=== PATIENT | male | born 1950 | race Caucasian/White ===

== ENCOUNTER 2020-01-07 04:38 | Inpatient (IN) ==
[2020-01-07] MEDS ORDERED: NS 1,000 ML IV ONE (06:34)
[2020-01-07] MEDS ORDERED: DILAUDID IV ONE (06:34)
[2020-01-07] MEDS ORDERED: SODIUM CHLORIDE 0.9% INJ ONE (06:35)
[2020-01-07] MEDS ORDERED: PHENERGAN IV ONE (06:35)
--- NOTE | 2020-01-07 06:41 | PROVIDER DOCUMENTATION ---
HPI-Abdominal Pain/GI Problem - General Chief Complaint: Abdominal Pain Stated Complaint: STOMACH PAIN Time Seen by Provider: 01/07/20 06:27 Source: patient Allergies/Adverse Reactions: Patient Allergies Allergy/AdvReac Type Severity Reaction Status Date / Time codeine AdvReac NAUSEA Verified 01/07/20 05:26 Home Medications: Home Medication List Medication Instructions Recorded Confirmed Last Taken Type Metoprolol [Lopressor] 50 mg PO DAILY 01/07/20 01/07/20 Unknown History - History of Present Illness-ABD Nature of Presenting Problems: Patient states he began having abdominal pain around his belly button and epigastric area around 7 pm last night. he had mild nausia but no vomiting. He felt bloated like he had to move his bowels. He had a small bowel movement. no melena or hematochezia. no improvement in abdominal discomfort. Abdominal Pain Onset Location: reports: epigastric, periumbilical Pain Radiation: reports: epigastric Quality of Pain: reports: pressure, other (bloating) Severity in ED: reports: severe Onset/Duration: reports: last night (7 pm) Timing: reports: still present Activities at Onset: reports: none Modifying Factors: improves with: nothing Associated Symptoms: reports: nausea Last BM: other (1 am) Dark Stools Present?: reports: other (brown stool). denies: maroon, black, tarry, bright red blood Rectal Bleeding: reports: none Rectal Pain: reports: none Emesis Description: reports: none Bruising or Bleeding Gums?: No Similar Symptoms Previously?: No Recently seen or treated by another doctor?: No Review of Systems - Adult - REVIEW OF SYSTEMS - ADULT Constitutional: reports: no symptoms reported Eyes: reports: no symptoms reported Ears, Nose, Mouth & Throat: reports: no symptoms reported Cardiovascular: reports: no symptoms reported Respiratory: reports: no symptoms reported Gastrointestinal: reports: see HPI Genitourinary: reports: no symptoms reported Musculoskeletal: reports: no symptoms reported Integumentary: reports: no symptoms reported Neurological: reports: no symptoms reported Psychiatric: reports: no symptoms reported Endocrine: reports: no symptoms reported Hematologic/Lymphatic: reports: no symptoms reported Allergic/Immunologic: reports: no symptoms reported Past History - Adult - PAST MEDICAL HISTORY-ADULT Review of Records: reports: Old Records Reviewed, Nursing Assessment Review Major Childhood Illnesses: reports: denies history Cardiovascular: reports: HTN Respiratory: reports: denies history Gastrointestinal: reports: denies history Genitourinary: reports: denies history Musculoskeletal: reports: denies history Neurological: reports: denies history Psychiatric: reports: denies history Endocrine/Immune: reports: denies history Physical Exam-General - PHYSICAL EXAM-ADULT Initial Vital Signs Reviewed: Yes - CONSTITUTIONAL General Appearance: alert, mild distress, obese - EYES Eyes: PERRL/EOMI, pink conjunctivae - HEAD, EARS, NOSE, MOUTH & THROAT HENMT: normocephalic/atraumatic, moist mucous membranes, normal ENT inspection, TMs normal, pharynx normal - NECK Neck: non-tender, full range of motion, supple - RESPIRATORY Respiratory: chest non-tender, lungs clear, normal breath sounds, no pleuratic chest pain - CARDIOVASCULAR Cardiovascular: normal peripheral pulses, regular rate, rhythm, no edema, no gallop, no JVD, no murmur - GASTROINTESTINAL (ABDOMEN) Abdominal Exam: soft, tenderness (periumbilical). negative: mass, McBurney's point tenderness, Cruz's sign - LYMPHATIC Lymphatic: no adenopathy - MUSCULOSKELETAL Back Exam: normal inspection, no CVA tenderness, no vertebral tenderness Extremity: normal range of motion, non-tender, normal gait - SKIN Integumentary: normal color, normal turgor, warm/dry - NEUROLOGIC Neurologic: grossly normal - PSYCHIATRIC Psych/Mental Status: normal mood/affect, normal thought content Progress - PLAN OF CARE/RESULTS Progress/Plan/Lab Results: Vital Signs - 8 hr 01/07/20 04:57 Pulse Rate 96 H Respiratory Rate 19 Blood Pressure 148/88 O2 Sat by Pulse Oximetry 96 Orders Category Date Time Status FLAT/UPRIGHT ABD/1 VIEW CHEST [RAD] Stat Exams 01/07/20 06:33 Ordered AMYLASE [CHEM] Stat Lab 01/07/20 06:33 Uncollected CBC WITH ELECTRONIC DIFF [HEME] Stat Lab 01/07/20 06:33 Uncollected COMPREHENSIVE METABOLIC PANEL [CHEM] Stat Lab 01/07/20 06:33 Ordered LIPASE [CHEM] Stat Lab 01/07/20 06:33 Uncollected Hydromorphone [Dilaudid] Med 01/07/20 06:34 Once 1 mg IV NOW ONE Ns 1000 ml IV Bolus X1 Med 01/07/20 06:34 Ordered 0.9% Sodium Chloride Inj [Ns] 1,000 ml IV 999 mls/hr Promethazine [Phenergan] Med 01/07/20 06:35 Once 12.5 mg IV NOW ONE Sodium Chloride 0.9% Med 01/07/20 06:35 Once 10 ml INJ NOW ONE Result Diagrams: 01/07/20 06:06 01/07/20 06:06 - REASSESSMENT Reassessment #1 Time Reassessed: 08:27 Status: improving (Seen and examined by me. Case discussed wt Dr. Jolley at shift change, had been very tender initially, better after dilaudid. Will check CT a/p.) - XRAY 1 XRAY Study: Abdomen Impression: Abnormal, See EMR Report ( EXAM: FLAT/UPRIGHT ABD/1 VIEW CHEST INDICATION: periumbilical pain TECHNIQUE: 4 views COMPARISON: 11/14/2019 FINDINGS: There are a few loops of moderately distended small bowel with air- fluid levels in the mid and left side of the abdomen. Consider ileus versus partial obstruction. There is no evidence of large volume free abdominal gas. There is no evidence of organomegaly. The lungs are grossly clear. There is no discrete pleural fluid collection or pneumothorax. The cardiomediastinal silhouette and central vasculature are grossly unremarkable. IMPRESSION: A few nonspecific moderately distended loops of small bowel as described. Electronically signed by Foster Alfonso 01/07/2020 7:55 AM 01/07/20 0755 Interpreting Physician: Foster Alfonso MD Dictated Date/Time: 01/07/20 0753 cc: Guzman Jolley DO; Julio Calderón MD) - ULTRASOUND (By Radiology) 1 US Study: Abdomen Impression: Abnormal, See EMR Report ( EXAM: CT ABD/PELVIS W/IV CONT ONLY INDICATION: abd pain TECHNIQUE: This exam was performed using automated exposure control, adjustment of mA or kV according to patient size, and/or use of iterative reconstruction technique. COMPARISON: None. FINDINGS: The liver, gallbladder, spleen, pancreas, and adrenal glands are grossly unremarkable. There is a small left renal cyst. The kidneys are unremarkable, otherwise. The urinary bladder is unremarkable. The appendix is normal. There are several moderately distended loops of small bowel mainly on the left side of the abdomen containing gas and fluid. The distal small bowel is decompressed. This is consistent with small bowel obstruction. The transition point appears to be in the left lower quadrant. There is mild mesenteric edema surrounding the loops of distended small bowel. The colon is nondistended. The stomach appears normal. No free abdominal gas is appreciated. There is no evidence of acute osseous abnormality. IMPRESSION: Several moderately distended loops of small bowel with surrounding mild mesenteric edema consistent with small bowel obstruction. The transition point is likely in the left lower quadrant. Electronically signed by Foster Alfonso 01/07/2020 8:37 AM 01/07/20 0837 Interpreting Physician: Foster Alfonso MD Dictated Date/Time: 01/07/20 0831 cc: Imtiaz Cespedes MD; Julio Calderón MD) - CONSULTS/PCP/HOSPITALIST Notification #1 *Consult/PCP/Hospitalist*: Hospitalist ROCAEL paged at 0910 Time Discussed: 09:21 (ROCAEL Newman) Reason/Comments: Dr. Jones will admit, please consult surgery Consult Disposition: Will see in ED, Admit #2 Consult: Xi paged at 09 Time Discussed: 09:22 Consult Disposition: other (will see) - CHANGE OF SHIFT REPORT (ED Provider) 1 Report Given and Care Transferred to:: Dr Cespedes Time of Transfer: 07:09 Items Pending: Labs, XRAY Results Departure - Departure Date of Disposition Decision: 01/07/20 Time of Disposition Decision: 09:09 DIAGNOSIS: Small bowel obstruction Disposition: ADMITTED INPATIENT 09 Certified Medical Emergency: Emergent Condition: Stable Referrals and Follow-Ups: Julio Calderón MD [Primary Care Provider] - - Critical Care Note This patient required my direct & personal management of CC.: No Attestation - Physician/ PADMINI Attestation Patient care was provided by Advanced Practice Provider:: No The physician spent face to face time with patient:: Yes Advanced Practice Provider documentation review:: Supervising physician onsite and consulted in the evaluation and care of this patient. The physician did have a face to face encounter with the patient.
[2020-01-07 07:06] LABS: BASO# 0.02 X1000 (0.0-0.2); BASO% 0.2 % (0.0-0.8); EOS# 0.06 X1000 (0.0-0.7); EOS% 0.7 % (0.0-10.0); HEMATOCRIT 45.1 % (42.0-52.0); HEMOGLOBIN 14.8 g/dL (14.0-18.0); LYMPH# 1.62 X1000 (1.2-3.4); LYMPH% 18.3 % (20.5-51.1); MCH 30.1 PG (27-31); MCHC 32.8 g/dL (33-37); MCV 91.7 FL (81-99); MONO# 0.47 X1000 (0.11-0.59); MONO% 5.3 % (1.7-9.3); MPV 11.8 FL (7.4-10.4); NEUT# 6.66 X1000 (1.4-6.5); NEUT% 75.5 % (42.2-75.2); PLT 183 X1000 (130-400); RBC 4.92 XMIL (4.7-6.1); RDW 13.4 % (11.5-14.5); WBC 8.83 X1000 (4.8-10.8)
[2020-01-07 07:07] LABS: AGAP 11; ALB/GLOB RATIO 1.6; ALBUMIN 4.3 g/dL (3.5-5.0); ALKALINE PHOSPHATASE 68 U/L (32-122); BUN 18 mg/dL (8-22); CALCIUM 9.4 mg/dL (8.8-10.2); CHLORIDE 102 mmol/L (98-107); COSMO 284; ESTIMATED GFR > 60; GLUCOSE 146 mg/dL (70-104); GOT 21 U/L (10-34); GPT 19 U/L (10-44); SODIUM 140 mmol/L (136-145); TCO2 27 mmol/L (25-35); TOTAL BILIRUBIN 0.44 mg/dL (0.20-1.00)
[2020-01-07 07:15] LABS: AMYLASE 57 U/L (20-200); LIPASE 41 U/L (13-60)
--- NOTE | 2020-01-07 07:57 | Diag Imaging Result Doc PS360 ---
EXAM: FLAT/UPRIGHT ABD/1 VIEW CHEST INDICATION: periumbilical pain TECHNIQUE: 4 views COMPARISON: 11/14/2019 FINDINGS: There are a few loops of moderately distended small bowel with air-fluid levels in the mid and left side of the abdomen. Consider ileus versus partial obstruction. There is no evidence of large volume free abdominal gas. There is no evidence of organomegaly. The lungs are grossly clear. There is no discrete pleural fluid collection or pneumothorax. The cardiomediastinal silhouette and central vasculature are grossly unremarkable. IMPRESSION: A few nonspecific moderately distended loops of small bowel as described. Electronically signed by Foster Alfonso 01/07/2020 7:55 AM
--- NOTE | 2020-01-07 08:39 | Diag Imaging Result Doc PS360 ---
EXAM: CT ABD/PELVIS W/IV CONT ONLY INDICATION: abd pain TECHNIQUE: This exam was performed using automated exposure control, adjustment of mA or kV according to patient size, and/or use of iterative reconstruction technique. COMPARISON: None. FINDINGS: The liver, gallbladder, spleen, pancreas, and adrenal glands are grossly unremarkable. There is a small left renal cyst. The kidneys are unremarkable, otherwise. The urinary bladder is unremarkable. The appendix is normal. There are several moderately distended loops of small bowel mainly on the left side of the abdomen containing gas and fluid. The distal small bowel is decompressed. This is consistent with small bowel obstruction. The transition point appears to be in the left lower quadrant. There is mild mesenteric edema surrounding the loops of distended small bowel. The colon is nondistended. The stomach appears normal. No free abdominal gas is appreciated. There is no evidence of acute osseous abnormality. IMPRESSION: Several moderately distended loops of small bowel with surrounding mild mesenteric edema consistent with small bowel obstruction. The transition point is likely in the left lower quadrant. Electronically signed by Foster Alfonso 01/07/2020 8:37 AM
[2020-01-07 08:40] LABS: URINE SOURCE CLEAN CATCH
[2020-01-07 08:48] LABS: BILIRUBIN URINE NEGATIVE (NEGATIVE); BLOOD URINE NEGATIVE (NEGATIVE); COLOR YELLOW; GLUCOSE URINE NEGATIVE (NEGATIVE); KETONE URINE NEGATIVE (NEGATIVE); LEUKOCYTES URINE NEGATIVE (NEGATIVE); NITRITE URINE NEGATIVE (NEGATIVE); PH URINE 6.5; PROTEIN URINE TRACE mg/dL (NEGATIVE); TURBIDITY URINE CLEAR (CLEAR); UROBILINOGEN URINE NORMAL (NORMAL)
[2020-01-07 08:49] LABS: UR EPITHELIAL CELLS <10 /HPF (<10); URINE BACTERIA NEGATIVE /HPF; URINE RBC <10 /HPF (<10); URINE WBC <10 /HPF (<10)
[2020-01-07] MEDS: NS 1,000 ML IV SCH ×2 (09:58→22:30)
--- NOTE | 2020-01-07 11:28 | HISTORY AND PHYSICAL ---
PRIMARY CARE PHYSICIAN: Dr. Calderón. CHIEF COMPLAINT: Epigastric and umbilical abdominal pain that began around 7 p.m. last night and progressively worsened with nausea. HISTORY OF PRESENTING ILLNESS: This is a 69-year-old male who presents to [facility] with complaints of epigastric and umbilical abdominal pain that began around 7 p.m. last night. Also states he has had some nausea but no vomiting. States he had 2 bowel movements yesterday and 1 around 1 a.m. today that were normal for him. Workup showed an abdomen x-ray with a few nonspecific moderately distended loops of small bowel, so we did a CT of the abdomen and pelvis that showed several moderately distended loops of small bowel with surrounding mild mesenteric edema consistent with small bowel obstruction. The transition point is likely the left lower quadrant. So, he will be admitted for further evaluation and treatment. PAST MEDICAL HISTORY: Hypertension. PAST SURGICAL HISTORY: None. FAMILY HISTORY: Reviewed and noncontributory. SOCIAL HISTORY: Currently lives with family. Denies any tobacco, alcohol or illicit drug use. ALLERGIES: To codeine. HOME MEDICATIONS: He takes Hyzaar 100/12.5 one p.o. daily and metoprolol 100 mg daily p.r.n. both of which will be held at this time. LABORATORY DATA: Showed a white blood cell count of 8.83, hemoglobin 14.8, hematocrit 45.1, platelets 183,000. Sodium 140, potassium 5, chloride 102, CO2 27, BUN of 18, creatinine 1, glucose 146. Amylase of 57, lipase 41. Urinalysis is negative. Abdomen x-ray showed a few nonspecific moderately distended loops of small bowel. CT of the abdomen and pelvis showed several moderately distended loops of small bowel with surrounding mild mesenteric edema consistent with a small bowel obstruction. Transition point is likely in the left lower quadrant. REVIEW OF SYSTEMS: He denied any fever, chills, blurred vision, dizziness, chest pain, coughing, shortness of breath. He had umbilical and epigastric abdominal pain with nausea. Denied any vomiting. Denied constipation, diarrhea, stating his last bowel movement was around 1 a.m. and was normal and denied any burning or hurting with urination. PHYSICAL EXAMINATION: VITAL SIGNS: On arrival he had a pulse of 96, respirations 19, blood pressure 144/88, saturating 96% on room air. GENERAL: This is a 69-year-old male who is lying in the bed and answers questions appropriately. HEENT: Normocephalic, atraumatic. Normal ENT inspection. Oropharynx and nares are clear. EYES: Pupils are equal, round, reactive to light and accommodation. Extraocular movements are intact. NECK: Normal inspection, normal range of motion. LUNGS: Clear to auscultation bilaterally with equal lung expansion and chest wall movement. HEART: Regular rate and rhythm. No murmurs, rubs, or gallops. ABDOMEN: Was mildly distended with tenderness to the periumbilical area. Bowel sounds are hypoactive x4 quadrants. MUSCULOSKELETAL: He has 5/5 strength x4 extremities. NEUROLOGICAL: The cranial nerves 2-12 appear grossly intact. ASSESSMENT: 1. Epigastric and umbilical abdominal pain. 2. Small bowel obstruction. 3. Hypertension. PLAN: He will be admitted to the medical unit, placed on telemetry, held n.p.o. We will apply SCDs for DVT prophylaxis. We will consult surgery to follow along. Give Dilaudid 1 mg IV q.3 hours p.r.n., normal saline at 125 mL an hour, Zofran 4 mg IV q.4 hours p.r.n. Further orders after seen by attending and by it systems analyst consultant. Dictated by ROCAEL Espana for Jerardo Espinoza MD Addendum: Patient seen and examined by myself. Agree with ROCAEL note. It reflects my assessment and plan. Patient is being admitted to hospital for SBO so will consult surgery and will go from there. Will provide IV lfuids and pain medications. cc: ROCAEL Espana MD Michael C. Donham, MD MTDD
[2020-01-07] MEDS: DILAUDID IV PRN ×2 (13:34→22:30)
[2020-01-07] MEDS: ZOFRAN IV PRN ×2 (18:06→22:30)
--- NOTE | 2020-01-07 18:43 | GENERAL SURGERY CONSULTATION ---
DATE: 01/07/2020 REASON FOR CONSULTATION: Small-bowel obstruction. HISTORY OF PRESENT ILLNESS: This is a 69-year-old male who was in his usual state of health, who began experiencing severe epigastric pain with some mild nausea last night after supper. He ate [place]. His ate them as well but did not get sick. He went to bed and woke up at 11 with persistent and progressive epigastric pain. He did have a bowel movement this morning at 1 a.m. that was normal. He came to emergency room. His pain has lessened significantly. Of note he did get better when he walked around and with pain medicine here in the hospital, it seemed to be worse when he was lying down still. No prior episodes similar to this. No fever or chills. No diarrhea or constipation. PAST MEDICAL HISTORY: Hypertension. HOME MEDICATIONS: Losartan/hydrochlorothiazide and metoprolol. ALLERGIES: Codeine. PAST SURGICAL HISTORY: None. FAMILY HISTORY: His brother had colon cancer. SOCIAL HISTORY: He denies tobacco, alcohol or illicit drug use. REVIEW OF SYSTEMS: Ten systems reviewed and negative except as noted above. PHYSICAL EXAMINATION: Vital Signs: Temperature 97.6 degrees, pulse 88, respirations 16, blood pressure 133/82, O2 saturation 100%. General: Well-developed, well-nourished male in no distress who looks stated age. HEENT: Normocephalic, atraumatic. Extraocular muscles intact. Pupils equal, round, reactive to light. Sclerae anicteric. Neck: Supple. No thyromegaly. Lymph: No cervical, supraclavicular or periumbilical lymph nodes appreciated. CV: Regular rate and rhythm without murmurs or rales. Respiratory: Clear to auscultation bilaterally without wheezes or increased work of breathing. GI: Soft, obese, nondistended. No organomegaly or mass. He has a reducible small umbilical hernia. He has mild tenderness diffusely without rebound or guarding. Extremities: No clubbing, cyanosis, or edema. Skin: Warm and dry. No rash. Musculoskeletal: Moves all extremities equally and well. LABORATORY: CBC, complete metabolic profile and urinalysis reviewed and unremarkable. IMAGING: Abdominal x-ray was performed which showed a few nonspecific moderately distended loops of small bowel and a CT of the abdomen pelvis was performed this morning which shows several moderately distended loops of small bowel with some mild mesenteric edema with a possible transition point in the left lower quadrant. ASSESSMENT AND PLAN: A 69-year-old male with severe abdominal pain, now improving, imaging concerning for small bowel obstruction. Also the differential would be gastroenteritis, benign bloating, early cholecystitis or pancreatitis or occult small-bowel neoplasm causing a mechanical obstruction. Overall, my suspicion is this is a benign process. I will start on a clear liquid diet and continue clinical observation for the next 24 hours. We will check an x-ray in the morning and reassess how he is doing. cc: Abdifatah Layne MD
[2020-01-08 07:04] LABS: BASO# 0.01 X1000 (0.0-0.2); BASO% 0.1 % (0.0-0.8); EOS# 0.14 X1000 (0.0-0.7); EOS% 1.9 % (0.0-10.0); HEMATOCRIT 42.6 % (42.0-52.0); HEMOGLOBIN 13.5 g/dL (14.0-18.0); LYMPH# 1.15 X1000 (1.2-3.4); LYMPH% 15.5 % (20.5-51.1); MCH 29.9 PG (27-31); MCHC 31.7 g/dL (33-37); MCV 94.5 FL (81-99); MONO# 0.73 X1000 (0.11-0.59); MONO% 9.8 % (1.7-9.3); MPV 11.1 FL (7.4-10.4); NEUT# 5.41 X1000 (1.4-6.5); NEUT% 72.7 % (42.2-75.2); PLT 148 X1000 (130-400); RBC 4.51 XMIL (4.7-6.1); RDW 13.7 % (11.5-14.5); WBC 7.44 X1000 (4.8-10.8)
[2020-01-08 07:24] LABS: AGAP 9; ALBUMIN 3.8 g/dL (3.5-5.0); BUN 11 mg/dL (8-22); CALCIUM 8.5 mg/dL (8.8-10.2); CHLORIDE 106 mmol/L (98-107); COSMO 284; CREATININE 0.8 mg/dL (0.7-1.2); ESTIMATED GFR > 60; GLUCOSE 127 mg/dL (70-104); PHOSPHORUS 2.3 mg/dL (2.7-4.5); POTASSIUM 4.5 mmol/L (3.5-5.1); SODIUM 142 mmol/L (136-145); TCO2 27 mmol/L (25-35)
--- NOTE | 2020-01-08 10:12 | Diag Imaging Result Doc PS360 ---
EXAM: FLAT/UPRIGHT ABD/1 VIEW CHEST INDICATION: sbo TECHNIQUE: 4 views COMPARISON: 01/07/2020 FINDINGS: There are persistent gas distended loops of small bowel in the abdomen on the left. However, the distention has improved. They are now mildly distended. No large volume free abdominal gas is identified. The abdomen is grossly stable, otherwise. There is minimal left basilar subsegmental atelectasis. The lungs are grossly clear, otherwise. There is no discrete pleural fluid collection or pneumothorax. The cardiomediastinal silhouette and central vasculature are grossly unremarkable. IMPRESSION: Interval improvement of gaseous distention of small bowel. Electronically signed by Foster Alfonso 01/08/2020 10:09 AM
[2020-01-08] MEDS ORDERED: SODIUM PHOSPHATE 35 MMOL in NS 250 ML IV ONE ×2 (11:56→13:04)
[2020-01-08] MEDS ORDERED: HYZAAR 100/12.5 MG TAB PO SCH (13:15)
[2020-01-08] MEDS ORDERED: TOPROL XL PO SCH (13:15)
--- NOTE | 2020-01-08 13:38 | PROGRESS NOTE ---
DATE: 01/08/2020 SUBJECTIVE: The patient reports feeling fine. Surgery ordered clear liquid diet which patient is tolerating very well. No nausea or vomiting. He was passing gases yesterday. OBJECTIVE: Vital Signs: Temperature 97.6 degrees, heart rate 91, respiratory 20, blood pressure 157/92, O2 saturation 100% on room air. General: This is a 69-year-old male lying in bed no acute distress . Cardiovascular: S1-S2 heard. No murmurs, gallops or rubs. Regular rate and rhythm. Respiratory: Clear bilaterally to auscultation. No work of breathing or using accessory muscles. Abdomen: Soft, a little bit distended but nontender to palpation, bowel sounds present. No organomegaly. Extremities: No clubbing, cyanosis, or edema. Peripheral pulses present both legs. Neurologic: Patient alert, oriented x3, moves 4 extremities. LABORATORY DATA: Reviewed. ASSESSMENT AND PLAN: 1. Small bowel obstruction. 2. Hypertension. PLAN: At this point patient is doing fine. Surgery allow him to have clear liquids. He is tolerating it very well, no nausea, vomiting or worsening abdominal pain. At this point will leave to General Surgery to advance his diet. Once he is having bowel movements he most likely be discharged. cc: Jerardo Espinoza MD
[2020-01-08 16:35] VITALS: BP 161/89
--- NOTE | 2020-01-08 17:38 | GENERAL SURGERY PROGRESS NOTE ---
DATE: 01/08/2020 SUBJECTIVE: The patient is doing well. He denies abdominal pain, nausea, or vomiting. He is passing gas. OBJECTIVE: vital signs: He is a afebrile. Vital signs are stable. General: He is awake and alert in no acute distress. Gastrointestinal: Soft, nontender, nondistended. He has good bowel sounds. LABORATORY: CBC and metabolic profile reviewed and unremarkable. IMAGING: His abdominal flat and upright x-ray shows improved loops of bowel. ASSESSMENT AND PLAN: A 69-year-old male with ileus versus small bowel obstruction that is improving. We will advance him to a soft diet. If he tolerates that, he can be discharged home. cc: Abdifatah Layne MD
--- NOTE | 2020-01-10 10:31 | DISCHARGE SUMMARY ---
ADMISSION DATE: 01/07/2020 DISCHARGE DATE: 01/08/2020 DISCHARGE DIAGNOSES: 1. Small bowel obstruction resolved. 2. Hypertension. CONSULTATIONS: Dr. Abdifatah Layne from General Surgery. PROCEDURES: 1. Abdominal x-ray done on admission showed non specific moderately distended loops of small bowel as described. 2. Abdomen and pelvis CT showed several moderately distended loops of small bowel with surrounding mild mesenteric edema consistent with a small-bowel obstruction. Transition point is likely in the left lower quadrant. HOSPITAL COURSE: This patient basically was admitted to the hospital because of epigastric and umbilical abdominal pain that began at 07:00 in the evening the day before admission. He has nausea. No vomiting. In CT abdomen he was found to have a small bowel obstruction so he was admitted to the hospital. We consulted Surgery who decided to start this patient on clear liquids considering that he was able to pass gases. The patient was doing fine. The next day the patient was able to tolerate a GI soft diet. Continue to pass gas although not bowel movements so General Surgery decided to discharge this patient with follow up as needed per his primary care. DISCHARGE PHYSICAL EXAMINATION: Temperature 97.8 degrees, heart rate 71, respiratory rate 20, blood pressure 161/89, and O2 sat 100% on room air. General: This is a 61-year-old male lying in bed in no acute distress. Cardiovascular: S1 and S2 heard. No murmurs, gallops, or rubs. Regular rate and rhythm. Lungs: Respiratory exam: Clear bilaterally to auscultation. No work of breathing. Not using accessory muscles. Abdomen: Soft. Nontender to palpation. Bowel sounds present. No organomegaly. Extremities: No clubbing, cyanosis, or edema. Peripheral pulses present in both legs. Neurological: The patient is alert and oriented x3. Moves 4 extremities. DISCHARGE DISPOSITION: Home to self-care. LIST OF MEDICATIONS: None. TIME DISCHARGING THIS PATIENT: 20 minutes. cc: MD ALICIA Samuels
== END 2020-01-08 18:03 | disposition home or self-care (01) | DRG 390 ==
LOC: ED 04:38 → EDIPHOLD 09:32 → 4N 12:23
PROVIDERS: ATTEND Internal Medicine